=== PATIENT | male | born 1950 | race Caucasian/White ===

== ENCOUNTER → 2018-05-25 | Outpatient (CLI) | payer MEDICARE, MEDICAID ==
[~2018-05-25] MED LIST: GABA800T5 PO; LEVE250T28; LEVE250T5; LEVE500T8 PO
== END | disposition home or self-care (01) ==
LOC: STAR 10:19
PROVIDERS: ATTEND Orthopaedic Surgery
DX: Z01.818 Encounter for other preprocedural examination (principal); M25.561 Pain in right knee
CPT/HCPCS: 93005

== ENCOUNTER 2018-07-13 12:35 | Inpatient (IN) | payer MEDICAID, MEDICARE ==
[~2018-07-13] VITALS: Ht 182.9 cm; Wt 86.0 kg
[2018-07-13] MEDS ORDERED: LACTATED RINGERS 1,000 ML IV SCH (12:54)
[2018-07-13] MEDS ORDERED: SCOPOLAMINE PATCH, 1.5MG PATCH.TD72 TD ONE (13:00)
[2018-07-13] MEDS ORDERED: GABAPENTIN 300 MG CAPSULE PO ONE (13:00)
[2018-07-13] MEDS ORDERED: ACETAMINOPHEN 500 MG TABLET PO ONE (13:00)
[2018-07-13] MEDS ORDERED: PLEASE ENTER HEIGHT AND WEIGHT MC SCH (13:00)
[2018-07-13] MEDS ORDERED: MIDAZOLAM 1 MG/ML, 2ML ONE (13:05)
[2018-07-13] MEDS ORDERED: FENTANYL PF 250 MCG/5ML ONE (13:06)
[2018-07-13] MEDS ORDERED: WATER-INJECTION,STERILE 10 ML IV ONE (13:07)
[2018-07-13] MEDS ORDERED: CEFAZOLIN 1,000 MG ONE ×2 (13:07)
[2018-07-13] MEDS ORDERED: PROPOFOL 10 MG/ML, 20ML ONE (13:08)
[2018-07-13] MEDS ORDERED: LIDOCAINE-MPF 2% ,5ML ONE (13:08)
[2018-07-13] MEDS ORDERED: DEXAMETHASONE 4 MG/ML, 1ML ONE ×2 (13:09)
[2018-07-13] MEDS ORDERED: ONDANSETRON 2MG/ML, 2ML ONE ×2 (13:09)
[2018-07-13 13:32] VITALS: BP 138/85
[2018-07-13] MEDS ORDERED: ROCURONIUM 10MG/ML,5ML ONE (13:38)
[2018-07-13] MEDS ORDERED: MEPERIDINE/PF 50 MG/ML ONE (13:41)
[2018-07-13] MEDS ORDERED: EPINEPHRINE 1 MG/ML, 1ML ONE (13:49)
[2018-07-13] MEDS ORDERED: BUPIVACAINE/PF 0.5% ONE (13:49)
[2018-07-13] MEDS ORDERED: MEPERIDINE/PF 100 MG/ML ONE (14:59)
[2018-07-13] MEDS ORDERED: hydrALAzine 20 MG/ML, 1ML IV PRN (15:00)
[2018-07-13] MEDS ORDERED: HALOPERIDOL 5 MG/ML IV PRN (15:00)
[2018-07-13] MEDS ORDERED: MIDAZOLAM 1 MG/ML, 2ML IV PRN (15:00)
[2018-07-13] MEDS ORDERED: FENTANYL PF 100 MCG/2ML IV PRN (15:00)
[2018-07-13] MEDS ORDERED: MEPERIDINE/PF 25MG/0.5ML IVPush PRN (15:00)
[2018-07-13] MEDS ORDERED: OXYcodone 5 MG/5 ML ORAL.SOL UDC PO PRN (15:00)
[2018-07-13] MEDS ORDERED: PROMETHAZINE 25 MG/ML, 1ML IV PRN (15:00)
[2018-07-13] MEDS ORDERED: HYDROmorphone 2 MG/ML, 1ML IVPush PRN (15:00)
[2018-07-13] MEDS ORDERED: SUGAMMADEX 200 MG/2 ML IVPush ONE (15:19)
[2018-07-13] MEDS ORDERED: OXYcodone 5 MG/5 ML ORAL.SOL UDC ONE (16:16)
[2018-07-13] MEDS ORDERED: ONDANSETRON 2MG/ML, 2ML IV PRN (17:30)
[2018-07-13 18:25] VITALS: BP 148/89
[2018-07-13] MEDS: GABAPENTIN 400 MG CAPSULE PO SCH (21:41)
[2018-07-13] MEDS: KETOROLAC 30 MG/1 ML IV SCH (21:41)
[2018-07-13] MEDS: SODIUM CHLORIDE 0.9% 1,000 ML IV SCH (21:41)
[2018-07-13] MEDS: LEVETIRACETAM 500 MG TABLET PO SCH (21:41)
[2018-07-13] MEDS: OXYcodone/APAP 10/325MG TABLET PO PRN (22:13)
[2018-07-13] MEDS: CEFAZOLIN PMX 1GM/50ML 50 ML IVPB SCH (22:13)
[2018-07-14 00:48] VITALS: BP 133/79
[2018-07-14] MEDS: OXYcodone/APAP 10/325MG TABLET PO PRN ×5 (02:11→20:10)
[2018-07-14 03:33] VITALS: BP 124/75
[2018-07-14] MEDS ORDERED: ENOXAPARIN 30 MG/0.3 ML SQ ONE (06:00)
[2018-07-14] MEDS: KETOROLAC 30 MG/1 ML IV SCH ×2 (06:14→13:40)
[2018-07-14] MEDS: CEFAZOLIN PMX 1GM/50ML 50 ML IVPB SCH ×2 (06:44→14:37)
[2018-07-14 07:43] VITALS: BP 120/70
[2018-07-14] MEDS: GABAPENTIN 400 MG CAPSULE PO SCH ×3 (09:00→20:10)
[2018-07-14] MEDS: LEVETIRACETAM 500 MG TABLET PO SCH ×2 (09:00→20:10)
[2018-07-14 13:32] VITALS: BP 138/79
[2018-07-14] MEDS: SODIUM CHLORIDE 0.9% 1,000 ML IV SCH (13:40)
[2018-07-14 18:45] VITALS: BP 128/81
[2018-07-15 00:17] VITALS: BP 137/83
[2018-07-15] MEDS: OXYcodone/APAP 10/325MG TABLET PO PRN ×5 (02:09→18:08)
[2018-07-15 09:26] VITALS: BP 140/76
[2018-07-15] MEDS: SODIUM CHLORIDE 0.9% 1,000 ML IV SCH (09:30)
[2018-07-15] MEDS: LEVETIRACETAM 500 MG TABLET PO SCH (09:36)
[2018-07-15] MEDS: GABAPENTIN 400 MG CAPSULE PO SCH ×2 (09:36→18:09)
[2018-07-15 15:03] VITALS: BP 163/90
[2018-07-15] MEDS ORDERED: TRAM50TA2 PO (17:24)
[2018-07-15] MEDS ORDERED: ASPI81TA45 PO (17:24)
[2018-07-23] MEDS ORDERED: GABA-826 PO (21:28)
[2018-07-23] MEDS ORDERED: LEVE500T53 PO ×2 (21:30→21:33)
[2018-07-28] MEDS ORDERED: OXYC-302 PO (09:55)
== END 2018-07-15 18:00 | disposition home health service (06) | DRG 489 ==
LOC: OUT 12:35 → 4NOR 16:59 → OUT 17:01 → 4NOR 07-14 18:10
PROVIDERS: ADMIT Orthopaedic Surgery; ATTEND Orthopaedic Surgery
PROC: 0QHJ04Z Insertion of Internal Fixation Device into Right Fibula, Open Approach (ICD-10-PCS; 2018-07-13)
PROC: 0QHG04Z Insertion of Internal Fixation Device into Right Tibia, Open Approach (ICD-10-PCS; 2018-07-13)
PROC: 0SNC0ZZ Release Right Knee Joint, Open Approach (ICD-10-PCS; principal; 2018-07-13 15:00)
DX: M24.561 Contracture, right knee (principal); Z53.21 Procedure and treatment not carried out due to patient leaving prior to being seen by health care provider; G40.909 Epilepsy, unspecified, not intractable, without status epilepticus; Z87.891 Personal history of nicotine dependence; Z86.718 Personal history of other venous thrombosis and embolism; Z89.511 Acquired absence of right leg below knee
CPT/HCPCS: 93005; G0378; J0171; J0690; J1100; J1650; J1885; J2175; J2250; J2405; J2704; J3010; J7030; J7120

== ENCOUNTER 2019-01-30 15:35 | Inpatient (IN) | payer MEDICARE, MEDICAID ==
[~2019-01-30] VITALS: Ht 182.9 cm; Wt 73.1 kg
[~2019-01-30 15:35] MED LIST changes: +ASPI81TA45 PO; +GABA-826 PO; +LEVE500T53 PO; +OXYC-302 PO; +TRAM50TA2 PO
--- NOTE | 2019-01-30 15:39 | NUR ---
BIB [facility]-c/o diarrhea x3 weeks as well as increased weakness. Pt [facility] same. States not getting better. Pt placed in gown, positioned for comfort in bed. Continuous oxygen and BP Monitors applied, all safety measures observed.
--- NOTE | 2019-01-30 15:44 | NUR ---
Dr. Ch at bedside to evaluate pt.
[2019-01-30] MEDS ORDERED: SODIUM CHLORIDE 0.9% 1,000 ML IV ONE (15:49)
[2019-01-30] MEDS ORDERED: SODIUM CHLORIDE FLUSH 10ML SYR IVF ONE (16:00)
[2019-01-30 16:28] LABS: ALANINE AMINOTRANSFERASE 71 U/L (12-78); ALBUMIN 2.4 g/dL (3.4-5.0); ANION GAP 5 mmol/L (5-15); CALCIUM 10.3 mg/dL (8.5-10.1); CHLORIDE 110 mmol/L (98-107); CREATININE 0.51 mg/dL (0.7-1.3)
[2019-01-30 16:30] LABS: ALKALINE PHOSPHATASE 144 U/L (45-117); TOTAL PROTEIN 6.9 g/dL (6.4-8.2)
[2019-01-30 16:52] LABS: MEAN CORPUSCULAR HEMOGLOBIN 28.3 pg (27.5-34.5); MEAN CORPUSCULAR HGB CONC 32.7 g/dL (33.2-36.2); MEAN CORPUSCULAR VOLUME 86.6 fL (81-97); RED BLOOD COUNT 5.93 x10^6/uL (4.38-5.82); RED CELL DISTRIBUTION WIDTH 28.6 % (9.4-14.8)
[2019-01-30 16:53] LABS: MEAN PLATELET VOLUME 10.5 fL (7.4-10.4); PLATELET COUNT 93 x10^3/uL (130-400)
[2019-01-30 16:54] LABS: MD YES
[2019-01-30 16:59] LABS: BAND#(MANUAL) 0.14 x10^3/uL; BANDS%(MANUAL) 4 % (0-7); BASOS#(MANUAL) 0.04 x10^3/uL (0-0.1); BASOS% (MANUAL) 1 % (0-1); EOS#(MANUAL) 0.07 x10^3/uL (0.0-0.4); EOS% (MANUAL) 2 % (1-7); LYMPH#(MANUAL) 0.32 x10^3/uL (1-3.4); LYMPHS% (MANUAL) 9 % (22-44); MONOS#(MANUAL) 0.04 x10^3/uL (0.3-2.7); MONOS% (MANUAL) 1 % (2-9); SEG#(MANUAL) 2.91 x10^3/uL (1.8-6.8); SEGS% (MANUAL) 83 % (42-75)
[2019-01-30 17:01] LABS: ANISOCYTOSIS 2+
[2019-01-30 17:02] LABS: POLYCHROMASIA 1+; TARGET CELLS 1+
[2019-01-30 17:03] LABS: <PLATELET ESTIMATE> DECREASED; LARGE PLATELETS 1+
--- NOTE | 2019-01-30 17:52 | NUR ---
Pt incontinent of stool. Stool appears soft but formed. Patito care provided. Linens changed. Pt provided warm blankets. Pt provided water per request. Pt denies other needs.
[2019-01-30 18:10] LABS: MICROSCOPIC INDICATED
[2019-01-30 18:11] LABS: CULTURE INDICATED? YES
[2019-01-30] MEDS ORDERED: CEFTRIAXONE PMX 1GM/50ML 50 ML IV ONE ×2 (19:00→22:00)
--- NOTE | 2019-01-30 19:03 | NUR ---
Report to Kory [facility].
--- NOTE | 2019-01-30 19:22 | NUR ---
Received report and assumed patient care. Patient resting comfortably. Aware of admit. Awaiting room.
[2019-01-30] MEDS ORDERED: CEFTRIAXONE PMX 1GM/50ML 50 ML ONE (19:28)
--- NOTE | 2019-01-30 19:38 | NUR ---
RN to bedside; patient informed of wait for medical bed. Patient alert, oriented. Antibiotic hung (see mar) fluids still running.
[2019-01-30] MEDS ORDERED: ENALAPRILAT 1.25 MG/ML, 2ML IV ONE (21:30)
[2019-01-30] MEDS ORDERED: DOCUSATE 100 MG CAPSULE PO PRN (22:00)
[2019-01-30] MEDS ORDERED: ONDANSETRON 2MG/ML, 2ML IVPush PRN (22:00)
[2019-01-30] MEDS ORDERED: TEMAZEPAM 15 MG CAPSULE PO PRN (22:00)
[2019-01-30] MEDS ORDERED: LIDODERM 5% PATCH TD PRN (22:00)
[2019-01-30] MEDS ORDERED: ENALAPRILAT 1.25 MG/ML, 2ML IVPush PRN (22:00)
[2019-01-30] MEDS ORDERED: ACETAMINOPHEN 325 MG TABLET PO PRN (22:00)
[2019-01-30 22:07] VITALS: BP 155/92
[2019-01-30] MEDS: LEVETIRACETAM 500 MG TABLET PO SCH (22:45)
[2019-01-30] MEDS: GABAPENTIN 100 MG CAPSULE PO SCH (22:45)
[2019-01-30] MEDS: ENOXAPARIN 40 MG/0.4 ML SQ SCH (22:49)
[2019-01-30 23:21] VITALS: BP 174/100
[2019-01-30 23:52] LABS: CLOSTRIDIUM DIFFICILE ANTIGEN NEGATIVE; CLOSTRIDIUM DIFFICILE TOXIN NEGATIVE (Negative)
[2019-01-31] MEDS: SODIUM CHLORIDE 0.9% 1,000 ML IV SCH ×2 (01:51→17:33)
[2019-01-31 03:26] VITALS: BP 157/78
[2019-01-31 04:57] LABS: ANION GAP 5 mmol/L (5-15); CHLORIDE 109 mmol/L (98-107); CREATININE 0.49 mg/dL (0.7-1.3)
[2019-01-31 05:49] LABS: MD YES; MEAN CORPUSCULAR HEMOGLOBIN 28.4 pg (27.5-34.5); MEAN CORPUSCULAR HGB CONC 32.5 g/dL (33.2-36.2); MEAN CORPUSCULAR VOLUME 87.2 fL (81-97); MEAN PLATELET VOLUME 9.5 fL (7.4-10.4); PLATELET COUNT 80 x10^3/uL (130-400); RED BLOOD COUNT 5.82 x10^6/uL (4.38-5.82); RED CELL DISTRIBUTION WIDTH 28.7 % (9.4-14.8)
[2019-01-31 05:51] LABS: BAND#(MANUAL) 0.12 x10^3/uL; BANDS%(MANUAL) 3 % (0-7); EOS#(MANUAL) 0.08 x10^3/uL (0.0-0.4); EOS% (MANUAL) 2 % (1-7); LYMPH#(MANUAL) 0.62 x10^3/uL (1-3.4); LYMPHS% (MANUAL) 15 % (22-44); MONOS#(MANUAL) 0.16 x10^3/uL (0.3-2.7); MONOS% (MANUAL) 4 % (2-9); SEG#(MANUAL) 3.12 x10^3/uL (1.8-6.8); SEGS% (MANUAL) 76 % (42-75)
[2019-01-31 05:53] LABS: <PLATELET ESTIMATE> DECREASED; ANISOCYTOSIS 2+; LARGE PLATELETS 1+; TARGET CELLS 1+
[2019-01-31 07:31] VITALS: BP 161/97
[2019-01-31] MEDS: GABAPENTIN 300 MG CAPSULE PO SCH ×3 (08:25→21:16)
[2019-01-31] MEDS: LEVETIRACETAM 500 MG TABLET PO SCH ×2 (08:25→21:16)
[2019-01-31] MEDS: GABAPENTIN 100 MG CAPSULE PO SCH ×3 (08:25→21:16)
[2019-01-31] MEDS: LIDODERM REMOVE PATCH NOTE XX SCH (10:30)
[2019-01-31 13:00] VITALS: BP 153/85
[2019-01-31 20:02] VITALS: BP 159/88
[2019-01-31] MEDS: ENOXAPARIN 40 MG/0.4 ML SQ SCH (22:40)
[2019-01-31] MEDS: CEFTRIAXONE PMX 2GM/50ML 50 ML IV SCH (22:40)
[2019-02-01 01:36] VITALS: BP 165/91
[2019-02-01] MEDS: SODIUM CHLORIDE 0.9% 1,000 ML IV SCH (04:54)
[2019-02-01 06:08] LABS: MEAN CORPUSCULAR HEMOGLOBIN 28.5 pg (27.5-34.5); MEAN CORPUSCULAR VOLUME 86.3 fL (81-97); RED BLOOD COUNT 5.38 x10^6/uL (4.38-5.82); RED CELL DISTRIBUTION WIDTH 28.2 % (9.4-14.8)
[2019-02-01 06:13] LABS: ALANINE AMINOTRANSFERASE 65 U/L (12-78); ALBUMIN 2.2 g/dL (3.4-5.0); ANION GAP 5 mmol/L (5-15); CALCIUM 9.2 mg/dL (8.5-10.1); CHLORIDE 108 mmol/L (98-107)
[2019-02-01 06:16] LABS: ALKALINE PHOSPHATASE 123 U/L (45-117); BILIRUBIN,TOTAL 0.8 mg/dL (0.2-1.0); CREATININE 0.54 mg/dL (0.7-1.3); TOTAL PROTEIN 6.3 g/dL (6.4-8.2)
[2019-02-01 06:39] LABS: MD YES
[2019-02-01 06:41] LABS: BAND#(MANUAL) 0.05 x10^3/uL; BANDS%(MANUAL) 1 % (0-7); EOS#(MANUAL) 0.09 x10^3/uL (0.0-0.4); EOS% (MANUAL) 2 % (1-7); LYMPH#(MANUAL) 0.55 x10^3/uL (1-3.4); LYMPHS% (MANUAL) 12 % (22-44); MONOS#(MANUAL) 0.23 x10^3/uL (0.3-2.7); MONOS% (MANUAL) 5 % (2-9); SEG#(MANUAL) 3.68 x10^3/uL (1.8-6.8); SEGS% (MANUAL) 80 % (42-75)
[2019-02-01 06:42] LABS: ANISOCYTOSIS 1+; HYPOCHROMIA 1+; TARGET CELLS 1+
[2019-02-01 06:44] LABS: <PLATELET ESTIMATE> DECREASED; LARGE PLATELETS 1+
[2019-02-01 06:51] LABS: PLATELET COUNT 81 x10^3/uL (130-400)
[2019-02-01 07:36] VITALS: BP 158/93
[2019-02-01] MEDS: GABAPENTIN 100 MG CAPSULE PO SCH (09:09)
[2019-02-01] MEDS: LEVETIRACETAM 500 MG TABLET PO SCH ×2 (09:09→20:00)
[2019-02-01] MEDS: LIDODERM REMOVE PATCH NOTE XX SCH (10:30)
[2019-02-01 12:47] VITALS: BP 159/85
[2019-02-01] MEDS ORDERED: GABAPENTIN 100 MG CAPSULE PO SCH (16:00)
[2019-02-01] MEDS ORDERED: GABAPENTIN 400 MG CAPSULE PO SCH (16:00)
[2019-02-01] MEDS: LOPERAMIDE 2 MG CAPSULE PO SCH ×2 (17:23→21:28)
[2019-02-01 19:37] VITALS: BP 158/79
[2019-02-01] MEDS: GABAPENTIN 400 MG CAPSULE PO SCH (20:00)
[2019-02-01] MEDS: CEFTRIAXONE PMX 2GM/50ML 50 ML IV SCH (21:27)
[2019-02-01] MEDS: ENOXAPARIN 40 MG/0.4 ML SQ SCH ×2 (21:28→21:31)
[2019-02-02 01:45] VITALS: BP 152/76
[2019-02-02] MEDS: LOPERAMIDE 2 MG CAPSULE PO SCH ×4 (03:40→20:30)
[2019-02-02 06:31] LABS: ANION GAP 5 mmol/L (5-15); CALCIUM 9.6 mg/dL (8.5-10.1); CHLORIDE 108 mmol/L (98-107)
[2019-02-02 06:32] LABS: CREATININE 0.41 mg/dL (0.7-1.3)
[2019-02-02 07:10] LABS: BASOPHILS % (AUTO) 0 % (0-1); EOSINOPHILS # (AUTO) 0.09 x10^3/uL (0-0.4); EOSINOPHILS % (AUTO) 2 % (1-7); LYMPHOCYTES # (AUTO) 0.83 x10^3/uL (1-3.4); LYMPHOCYTES % (AUTO) 19 % (22-44); MD SCAN; MEAN CORPUSCULAR HEMOGLOBIN 28.4 pg (27.5-34.5); MEAN CORPUSCULAR HGB CONC 33.1 g/dL (33.2-36.2); MEAN CORPUSCULAR VOLUME 85.8 fL (81-97); MEAN PLATELET VOLUME 10.9 fL (7.4-10.4); MONOCYTES # (AUTO) 0.23 x10^3/uL (0.2-0.8); MONOCYTES % (AUTO) 5 % (2-9); NEUTROPHILS # (AUTO) 3.25 x10^3/uL (1.8-6.8); NEUTROPHILS % (AUTO) 74 % (42-75); PLATELET COUNT 83 x10^3/uL (130-400); RED BLOOD COUNT 5.61 x10^6/uL (4.38-5.82)
[2019-02-02 07:47] VITALS: BP 149/79
[2019-02-02] MEDS: GABAPENTIN 400 MG CAPSULE PO SCH ×3 (08:51→20:30)
[2019-02-02] MEDS: LEVETIRACETAM 500 MG TABLET PO SCH ×2 (08:52→20:30)
[2019-02-02] MEDS: LIDODERM REMOVE PATCH NOTE XX SCH (10:30)
[2019-02-02 13:11] VITALS: BP 177/100
[2019-02-02 13:30] VITALS: BP 162/84
[2019-02-02 19:07] VITALS: BP 160/90
[2019-02-02] MEDS: ENOXAPARIN 40 MG/0.4 ML SQ SCH (22:00)
[2019-02-02] MEDS: CEFTRIAXONE PMX 2GM/50ML 50 ML IV SCH (22:30)
[2019-02-03 01:17] VITALS: BP 155/69
[2019-02-03] MEDS: LOPERAMIDE 2 MG CAPSULE PO SCH ×4 (03:45→23:46)
[2019-02-03 06:49] VITALS: BP 144/93
[2019-02-03] MEDS: GABAPENTIN 400 MG CAPSULE PO SCH ×3 (10:09→23:46)
[2019-02-03] MEDS: LEVETIRACETAM 500 MG TABLET PO SCH ×2 (10:09→20:46)
[2019-02-03] MEDS: LIDODERM REMOVE PATCH NOTE XX SCH (10:30)
[2019-02-03 12:42] VITALS: BP 160/92
[2019-02-03 19:17] VITALS: BP 150/76
[2019-02-03] MEDS: ENOXAPARIN 40 MG/0.4 ML SQ SCH (22:00)
[2019-02-03] MEDS: CEFTRIAXONE PMX 2GM/50ML 50 ML IV SCH (22:04)
[2019-02-04 01:43] VITALS: BP 163/91
[2019-02-04] MEDS: LOPERAMIDE 2 MG CAPSULE PO SCH ×2 (05:55→10:16)
[2019-02-04 06:54] VITALS: BP 143/67
[2019-02-04 07:36] VITALS: BP 124/64
[2019-02-04] MEDS: LEVETIRACETAM 500 MG TABLET PO SCH (10:16)
[2019-02-04] MEDS: GABAPENTIN 400 MG CAPSULE PO SCH (10:16)
[2019-02-04] MEDS: LIDODERM REMOVE PATCH NOTE XX SCH (10:16)
[2019-02-04] MEDS ORDERED: CEFD300C37 PO (10:50)
[2019-02-04] MEDS ORDERED: LOPE2CAP PO (10:50)
[2019-02-04 12:20] VITALS: BP 154/79
== END 2019-02-04 13:28 | disposition home health service (06) | DRG 690 ==
LOC: ED 18:43 → EDIP 19:04 → 3N 20:55
PROVIDERS: ADMIT Family Medicine; ATTEND Internal Medicine
PROC: 0T9B70Z Drainage of Bladder with Drainage Device, Via Natural or Artificial Opening (ICD-10-PCS; principal; 2019-01-30)
DX: N39.0 Urinary tract infection, site not specified (principal); K52.9 Noninfective gastroenteritis and colitis, unspecified; G40.909 Epilepsy, unspecified, not intractable, without status epilepticus; F12.90 Cannabis use, unspecified, uncomplicated; F17.210 Nicotine dependence, cigarettes, uncomplicated; I10 Essential (primary) hypertension; Z60.2 Problems related to living alone; D69.6 Thrombocytopenia, unspecified; Z99.3 Dependence on wheelchair; B96.20 Unspecified Escherichia coli [E. coli] as the cause of diseases classified elsewhere; Z89.511 Acquired absence of right leg below knee; Z72.89 Other problems related to lifestyle; Z86.718 Personal history of other venous thrombosis and embolism; Z79.899 Other long term (current) drug therapy
CPT/HCPCS: 36415; 71045; 80048; 80053; 81001; 83690; 85025; 87077; 87086; 87186; 87324; 89055; 93005; G0378; J0696; J1650; J7030

== ENCOUNTER 2019-02-11 11:09 | Emergency (ER) | payer MEDICARE, MEDICAID ==
[~2019-02-11] VITALS: Ht 177.8 cm; Wt 68.4 kg
[~2019-02-11 11:09] MED LIST changes: +CEFD300C37 PO; +LOPE2CAP PO
--- NOTE | 2019-02-11 11:15 | NUR ---
PT MARTHA CHAKRABORTY FROM HOME AFTER PHYSICAL THERPIST CALLED [facility] FOR INABILITY FOR PT TO CARE FOR SELF. PT HAS NEW "BED SORE" TO RIGHT HIP. PT REPORTS HE WATCHES TV ON HIS RIGHT HIP. PT ON OMNICEF FOR UTI AND HAS HAD DIARRHEA PER PT FOR 2 MONTHS.
[2019-02-11] MEDS ORDERED: GABA400C PO (11:39)
[2019-02-11] MEDS ORDERED: ATOR40TA78 PO (11:39)
[2019-02-11] MEDS ORDERED: TIOT18CA INH (11:39)
--- NOTE | 2019-02-11 12:00 | NUR ---
PT REPORTED TO DR. PATRICIO THAT HE DID NOT WANT TO GO TO ANY SNF.
[2019-02-11 12:02] LABS: MEAN CORPUSCULAR HGB CONC 32.8 g/dL (33.2-36.2); MEAN CORPUSCULAR VOLUME 88.3 fL (81-97); MEAN PLATELET VOLUME 10.2 fL (7.4-10.4); PLATELET COUNT 100 x10^3/uL (130-400); RED BLOOD COUNT 5.55 x10^6/uL (4.38-5.82)
[2019-02-11 12:06] LABS: ALANINE AMINOTRANSFERASE 83 U/L (12-78); ALBUMIN 2.1 g/dL (3.4-5.0); ANION GAP 5 mmol/L (5-15); CALCIUM 9.9 mg/dL (8.5-10.1); CHLORIDE 109 mmol/L (98-107); CREATININE 0.53 mg/dL (0.7-1.3)
[2019-02-11 12:09] LABS: ALKALINE PHOSPHATASE 123 U/L (45-117); BILIRUBIN,TOTAL 1.1 mg/dL (0.2-1.0); TOTAL PROTEIN 6.5 g/dL (6.4-8.2)
[2019-02-11 12:28] LABS: MD YES
[2019-02-11 12:49] LABS: ANISOCYTOSIS 1+; BAND#(MANUAL) 0.29 x10^3/uL; BANDS%(MANUAL) 7 % (0-7); EOS#(MANUAL) 0.12 x10^3/uL (0.0-0.4); EOS% (MANUAL) 3 % (1-7); HYPOCHROMIA 1+; LYMPHS% (MANUAL) 17 % (22-44); MONOS#(MANUAL) 0.21 x10^3/uL (0.3-2.7); MONOS% (MANUAL) 5 % (2-9); SEG#(MANUAL) 2.79 x10^3/uL (1.8-6.8); SEGS% (MANUAL) 68 % (42-75); TARGET CELLS 1+
[2019-02-11 12:50] LABS: <PLATELET ESTIMATE> DECREASED; LARGE PLATELETS 1+; POLYCHROMASIA 1+
--- NOTE | 2019-02-11 12:55 | NUR ---
PT GIVEN MEAL TRAY AND ADJUSTED IN BED.
--- NOTE | 2019-02-11 13:29 | NUR ---
PT DESATED TO 86% RA AFTER EATING. DR. PATRICIO AWARE. PT SATING 92% ON 2 LITERS NOW.
--- NOTE | 2019-02-11 14:41 | NUR ---
DR. PATRICIO AT BEDSIDE FOR RECHECK. PT ELECTING TO GO HOME AND HAVE HOME HEALTH NURSE HE HAS SET UP.
[2019-02-11 14:47] VITALS: BP 132/80
== END 2019-02-11 15:24 | disposition home or self-care (01) ==
LOC: ED 14:15
DX: R19.7 Diarrhea, unspecified (principal); L89.212 Pressure ulcer of right hip, stage 2; L89.892 Pressure ulcer of other site, stage 2; M79.89 Other specified soft tissue disorders; R62.7 Adult failure to thrive; Z68.21 Body mass index [BMI] 21.0-21.9, adult
CPT/HCPCS: 36415; 71045; 80053; 85025; 99284

== ENCOUNTER 2019-02-18 15:20 | Inpatient (IN) | payer MEDICARE, MEDICAID ==
[~2019-02-18] VITALS: Ht 180.3 cm; Wt 73.0 kg
[~2019-02-18 15:20] MED LIST changes: +ATOR40TA78 PO; +GABA400C PO; +TIOT18CA INH
[2019-02-18] MEDS ORDERED: SODIUM CHLORIDE 0.9% 1,000 ML IV ONE (15:52)
[2019-02-18] MEDS ORDERED: SODIUM CHLORIDE FLUSH 10ML SYR IVF ONE (16:00)
--- NOTE | 2019-02-18 16:55 | NUR ---
BED BATH DONE, PT PROVIDED MULTIPLE CUPS OF WATER, DIET TRAY ORDERED. MULTIPLE PRESSURE ULCERS NOTED. LEFT HIP WITH PETECHIA AND BLACK SCAB 6/6 CM. RIGHT HIP WITH PARTIALLY HEALED PRESSURE ULCER WITH BROKEN SCABBING AND BLANCHABLE REDNESS. SCROTUM IS RED WITH PEALING SKIN, BOTTOM IS ALSO REDDENED WITH PEALING SKIN FROM LONG CONTACT WITH SOILED DIAPER.
[2019-02-18 17:09] LABS: ALANINE AMINOTRANSFERASE 96 U/L (12-78); ALBUMIN 2.6 g/dL (3.4-5.0); ANION GAP 7 mmol/L (5-15); CALCIUM 10.9 mg/dL (8.5-10.1); CHLORIDE 105 mmol/L (98-107); CREATININE 0.61 mg/dL (0.7-1.3)
[2019-02-18 17:20] LABS: INTERNATIONAL NORMALIZED RATIO 1.17 (0.93-1.1); PROTHROMBIN TIME 12.2 Seconds (9.6-11.5)
[2019-02-18 17:30] LABS: MEAN CORPUSCULAR HGB CONC 32.4 g/dL (33.2-36.2); MEAN CORPUSCULAR VOLUME 89.4 fL (81-97); RED BLOOD COUNT 6.31 x10^6/uL (4.38-5.82); RED CELL DISTRIBUTION WIDTH 26.7 % (9.4-14.8)
[2019-02-18 17:31] LABS: MEAN PLATELET VOLUME 12.5 fL (7.4-10.4); PLATELET COUNT 112 x10^3/uL (130-400)
[2019-02-18 17:35] LABS: ALKALINE PHOSPHATASE 141 U/L (45-117); BILIRUBIN,TOTAL 1.6 mg/dL (0.2-1.0); TOTAL PROTEIN 7.9 g/dL (6.4-8.2)
--- NOTE | 2019-02-18 17:38 | NUR ---
PROVIDED DINNER MEAL TRAY AND SET PATIENT UP TO EAT.
[2019-02-18 17:39] LABS: MD YES
[2019-02-18 17:50] LABS: BAND#(MANUAL) 0.09 x10^3/uL; BANDS%(MANUAL) 2 % (0-7); LYMPH#(MANUAL) 0.45 x10^3/uL (1-3.4); LYMPHS% (MANUAL) 10 % (22-44); MONOS#(MANUAL) 0.27 x10^3/uL (0.3-2.7); MONOS% (MANUAL) 6 % (2-9); SEG#(MANUAL) 3.69 x10^3/uL (1.8-6.8); SEGS% (MANUAL) 82 % (42-75)
[2019-02-18 17:54] LABS: POLYCHROMASIA 1+
[2019-02-18 17:58] LABS: TARGET CELLS 1+
[2019-02-18 18:01] LABS: SPHEROCYTES 1+
[2019-02-18 18:02] LABS: <PLATELET ESTIMATE> DECREASED; ANISOCYTOSIS 1+; LARGE PLATELETS 1+
--- NOTE | 2019-02-18 18:37 | NUR ---
PT CLEANED UP AND LINEN CHANGED AFTER BM IN BED. STOOL IS BROWN AND LIQUIDY. PUT PATIENT ON SPECIAL ISO PRECAUTIONS FOR POSSIBLE CDIFF.
--- NOTE | 2019-02-18 19:20 | NUR ---
pt with another bout of diarrhea, cleaned patient up and sent specimen to the lab. pt being transferred to inpatient room [id number].
[2019-02-18 19:42] VITALS: BP 148/93
[2019-02-18] MEDS ORDERED: ONDANSETRON 2MG/ML, 2ML IVPush PRN (20:00)
[2019-02-18] MEDS ORDERED: LACTATED RINGERS 1,000 ML IV SCH (20:00)
[2019-02-18] MEDS ORDERED: hydrALAzine 20 MG/ML, 1ML IVPush PRN (20:00)
[2019-02-18] MEDS: ENOXAPARIN 40 MG/0.4 ML SQ SCH (20:52)
[2019-02-18] MEDS: ACETAMINOPHEN 325 MG TABLET PO PRN (20:52)
[2019-02-18 21:10] LABS: CLOSTRIDIUM DIFFICILE ANTIGEN NEGATIVE; CLOSTRIDIUM DIFFICILE TOXIN NEGATIVE (Negative)
[2019-02-18 21:37] LABS: FREE T4 (FREE THYROXINE) 1.11 ng/dL (0.76-1.46)
[2019-02-18] MEDS: LEVETIRACETAM 500 MG TABLET PO SCH (23:00)
[2019-02-18] MEDS: GABAPENTIN 400 MG CAPSULE PO SCH (23:00)
[2019-02-18 23:30] VITALS: BP 148/93
[2019-02-18 23:47] LABS: MICROSCOPIC INDICATED
[2019-02-18 23:59] LABS: CULTURE INDICATED? YES
[2019-02-19 00:07] LABS: OCCULT BLOOD NEGATIVE (NEGATIVE)
[2019-02-19 00:30] VITALS: BP 137/83
[2019-02-19] MEDS: CEFTRIAXONE PMX 1GM/50ML 50 ML IV SCH (02:51)
[2019-02-19 03:38] LABS: ANION GAP 9 mmol/L (5-15); CALCIUM 9.7 mg/dL (8.5-10.1); CHLORIDE 107 mmol/L (98-107)
[2019-02-19 03:41] LABS: ALANINE AMINOTRANSFERASE 75 U/L (12-78); ALKALINE PHOSPHATASE 113 U/L (45-117); BILIRUBIN,TOTAL 1.2 mg/dL (0.2-1.0); CREATININE 0.48 mg/dL (0.7-1.3); TOTAL PROTEIN 6.2 g/dL (6.4-8.2)
[2019-02-19 03:57] LABS: MEAN CORPUSCULAR HEMOGLOBIN 28.6 pg (27.5-34.5); MEAN CORPUSCULAR HGB CONC 32.7 g/dL (33.2-36.2); MEAN CORPUSCULAR VOLUME 87.4 fL (81-97); MEAN PLATELET VOLUME 13.1 fL (7.4-10.4); PLATELET COUNT 121 x10^3/uL (130-400); RED BLOOD COUNT 5.43 x10^6/uL (4.38-5.82); RED CELL DISTRIBUTION WIDTH 24.8 % (9.4-14.8)
[2019-02-19 03:58] LABS: MD YES
[2019-02-19 03:59] LABS: LYMPH#(MANUAL) 0.39 x10^3/uL (1-3.4); LYMPHS% (MANUAL) 9 % (22-44); MONOS#(MANUAL) 0.22 x10^3/uL (0.3-2.7); MONOS% (MANUAL) 5 % (2-9); SEGS% (MANUAL) 86 % (42-75)
[2019-02-19 04:00] LABS: ANISOCYTOSIS 1+; HYPOCHROMIA 1+; TARGET CELLS 1+
[2019-02-19 04:02] LABS: <PLATELET ESTIMATE> DECREASED
[2019-02-19 04:03] LABS: LARGE PLATELETS 1+
[2019-02-19 06:09] VITALS: BP 130/77
[2019-02-19] MEDS ORDERED: MAGNESIUM SULFATE PMX 2GM/50ML 50 ML IV ONE (08:00)
[2019-02-19] MEDS ORDERED: D5%-0.45NACL+KCL 20MEQ 1,000 ML IV SCH (08:00)
[2019-02-19] MEDS: GABAPENTIN 400 MG CAPSULE PO SCH ×3 (09:36→20:45)
[2019-02-19] MEDS: LEVETIRACETAM 500 MG TABLET PO SCH ×2 (09:36→20:45)
[2019-02-19 10:49] LABS: HCT (SEDRATE) 48.1 % (39.2-51.8)
[2019-02-19 12:54] VITALS: BP 154/85
[2019-02-19] MEDS ORDERED: OMNIPAQUE 350 MG/ML, 150 ML BOTTLE ONE (14:19)
[2019-02-19] MEDS ORDERED: LOPERAMIDE 2 MG CAPSULE PO PRN (16:00)
[2019-02-19] MEDS ORDERED: VANCOMYCIN PER PHARMACY MC PRN (16:00)
[2019-02-19] MEDS ORDERED: LOPERAMIDE 2 MG CAPSULE PO ONE (16:00)
[2019-02-19] MEDS ORDERED: PHARMACOKINETIC MONITORING MC PRN (16:30)
[2019-02-19] MEDS ORDERED: GLUCAGON 1 MG IM PRN (16:30)
[2019-02-19] MEDS ORDERED: DEXTROSE 50%, 50ML SYRINGE IVPush PRN (16:30)
[2019-02-19] MEDS ORDERED: DEXTROSE 4 GM TAB.CHEW PO PRN (16:30)
[2019-02-19] MEDS ORDERED: PHARMACOKINETIC CONSULTATION MC ONE (16:30)
[2019-02-19] MEDS ORDERED: GADOXETATE DISODIUM 2.5 MMOL/10 ML ONE (17:32)
[2019-02-19] MEDS: VANCOMYCIN 1,600 MG in SODIUM CHLORIDE 0.9% 250 ML IV SCH (17:55)
[2019-02-19] MEDS: D5%-0.45NACL+KCL 20MEQ 1,000 ML IV SCH (17:55)
[2019-02-19 19:50] VITALS: BP 149/77
[2019-02-19] MEDS: CHOLESTYRAMINE LIGHT 4GM PACKET PO SCH (20:44)
[2019-02-19] MEDS: ENOXAPARIN 40 MG/0.4 ML SQ SCH (20:45)
[2019-02-19] MEDS: SODIUM CHLORIDE FLUSH 10ML SYR IVF SCH (20:46)
[2019-02-20] MEDS: CEFTRIAXONE PMX 1GM/50ML 50 ML IV SCH (01:24)
[2019-02-20 02:00] VITALS: BP 151/85
[2019-02-20 05:01] LABS: MEAN CORPUSCULAR HEMOGLOBIN 28.9 pg (27.5-34.5); MEAN CORPUSCULAR HGB CONC 32.3 g/dL (33.2-36.2); MEAN CORPUSCULAR VOLUME 89.7 fL (81-97); PLATELET COUNT 125 x10^3/uL (130-400); RED BLOOD COUNT 5.26 x10^6/uL (4.38-5.82); RED CELL DISTRIBUTION WIDTH 25.3 % (9.4-14.8)
[2019-02-20 05:10] LABS: ANION GAP 8 mmol/L (5-15); CALCIUM 9.3 mg/dL (8.5-10.1); CHLORIDE 107 mmol/L (98-107)
[2019-02-20 05:15] LABS: ALANINE AMINOTRANSFERASE 84 U/L (12-78); ALKALINE PHOSPHATASE 110 U/L (45-117); BILIRUBIN,TOTAL 0.8 mg/dL (0.2-1.0); CREATININE 0.46 mg/dL (0.7-1.3); TOTAL PROTEIN 6.1 g/dL (6.4-8.2)
[2019-02-20 05:48] LABS: MD YES
[2019-02-20 05:51] LABS: ANISOCYTOSIS 1+; EOS#(MANUAL) 0.05 x10^3/uL (0.0-0.4); EOS% (MANUAL) 1 % (1-7); LYMPH#(MANUAL) 0.64 x10^3/uL (1-3.4); LYMPHS% (MANUAL) 14 % (22-44); MONOS#(MANUAL) 0.28 x10^3/uL (0.3-2.7); MONOS% (MANUAL) 6 % (2-9); SEG#(MANUAL) 3.63 x10^3/uL (1.8-6.8); SEGS% (MANUAL) 79 % (42-75)
[2019-02-20 05:54] LABS: <PLATELET ESTIMATE> DECREASED; LARGE PLATELETS 1+; TARGET CELLS 1+
[2019-02-20] MEDS: ASPIRIN 81 MG TABLET EC PO SCH (06:08)
[2019-02-20 07:02] VITALS: BP 145/86
[2019-02-20] MEDS: CHOLESTYRAMINE LIGHT 4GM PACKET PO SCH ×2 (08:07→20:54)
[2019-02-20] MEDS: D5%-0.45NACL+KCL 20MEQ 1,000 ML IV SCH (08:07)
[2019-02-20] MEDS: GABAPENTIN 400 MG CAPSULE PO SCH ×3 (09:14→20:54)
[2019-02-20] MEDS: SODIUM CHLORIDE FLUSH 10ML SYR IVF SCH ×2 (09:14→20:54)
[2019-02-20] MEDS: LEVETIRACETAM 500 MG TABLET PO SCH ×2 (09:14→20:54)
[2019-02-20] MEDS: VANCOMYCIN 1,600 MG in SODIUM CHLORIDE 0.9% 250 ML IV SCH (11:10)
[2019-02-20 13:12] VITALS: BP 139/89
[2019-02-20 19:24] VITALS: BP 146/90
[2019-02-20] MEDS: ENOXAPARIN 40 MG/0.4 ML SQ SCH (20:00)
[2019-02-21 00:38] VITALS: BP 138/72
[2019-02-21] MEDS: CEFTRIAXONE PMX 1GM/50ML 50 ML IV SCH (02:27)
[2019-02-21] MEDS: VANCOMYCIN 1,600 MG in SODIUM CHLORIDE 0.9% 250 ML IV SCH (05:12)
[2019-02-21] MEDS: ASPIRIN 81 MG TABLET EC PO SCH ×2 (05:14→05:37)
[2019-02-21 07:48] VITALS: BP 157/102
[2019-02-21 07:51] VITALS: BP 117/69
[2019-02-21] MEDS: CHOLESTYRAMINE LIGHT 4GM PACKET PO SCH ×2 (08:01→20:44)
[2019-02-21] MEDS: D5%-0.45NACL+KCL 20MEQ 1,000 ML IV SCH (08:01)
[2019-02-21] MEDS: LEVETIRACETAM 500 MG TABLET PO SCH ×2 (08:03→20:42)
[2019-02-21] MEDS: SODIUM CHLORIDE FLUSH 10ML SYR IVF SCH ×2 (08:03→20:43)
[2019-02-21] MEDS: GABAPENTIN 400 MG CAPSULE PO SCH ×3 (08:03→20:42)
[2019-02-21] MEDS: ACETAMINOPHEN 325 MG TABLET PO PRN (08:05)
[2019-02-21 09:44] LABS: ANION GAP 8 mmol/L (5-15); CALCIUM 9.1 mg/dL (8.5-10.1); CHLORIDE 107 mmol/L (98-107)
[2019-02-21 09:47] LABS: ALANINE AMINOTRANSFERASE 81 U/L (12-78); ALKALINE PHOSPHATASE 109 U/L (45-117); BILIRUBIN,TOTAL 0.8 mg/dL (0.2-1.0); CREATININE 0.47 mg/dL (0.7-1.3)
[2019-02-21] MEDS ORDERED: LIDOCAINE 1%, 10ML ONE (11:16)
[2019-02-21 13:35] VITALS: BP 137/87
[2019-02-21] MEDS: OXYcodone IR 5MG TABLET PO PRN ×2 (16:39→20:43)
[2019-02-21 19:26] VITALS: BP 145/89
[2019-02-21] MEDS: ENOXAPARIN 40 MG/0.4 ML SQ SCH (20:00)
[2019-02-22 01:02] VITALS: BP 145/94
[2019-02-22] MEDS: CEFTRIAXONE PMX 1GM/50ML 50 ML IV SCH (01:32)
[2019-02-22] MEDS: ASPIRIN 81 MG TABLET EC PO SCH (03:42)
[2019-02-22 04:46] LABS: CHLORIDE 110 mmol/L (98-107)
[2019-02-22 04:55] LABS: ALANINE AMINOTRANSFERASE 78 U/L (12-78); ALKALINE PHOSPHATASE 105 U/L (45-117); ANION GAP 6 mmol/L (5-15); BILIRUBIN,TOTAL 0.7 mg/dL (0.2-1.0); CREATININE 0.43 mg/dL (0.7-1.3); TOTAL PROTEIN 6.4 g/dL (6.4-8.2)
[2019-02-22 05:46] LABS: MD YES; MEAN CORPUSCULAR HEMOGLOBIN 29.3 pg (27.5-34.5); MEAN CORPUSCULAR VOLUME 88.6 fL (81-97); MEAN PLATELET VOLUME 10.7 fL (7.4-10.4); PLATELET COUNT 92 x10^3/uL (130-400); RED CELL DISTRIBUTION WIDTH 24.5 % (9.4-14.8)
[2019-02-22 05:49] LABS: ANISOCYTOSIS 1+; BAND#(MANUAL) 0.11 x10^3/uL; BANDS%(MANUAL) 3 % (0-7); EOS#(MANUAL) 0.04 x10^3/uL (0.0-0.4); EOS% (MANUAL) 1 % (1-7); HYPOCHROMIA 1+; LYMPH#(MANUAL) 0.42 x10^3/uL (1-3.4); LYMPHS% (MANUAL) 12 % (22-44); MONOS#(MANUAL) 0.25 x10^3/uL (0.3-2.7); MONOS% (MANUAL) 7 % (2-9); SEGS% (MANUAL) 77 % (42-75)
[2019-02-22 05:50] LABS: <PLATELET ESTIMATE> DECREASED; LARGE PLATELETS 1+; POLYCHROMASIA 1+; TARGET CELLS 1+
[2019-02-22 08:28] VITALS: BP 133/82
[2019-02-22] MEDS ORDERED: LIDOCAINE 1%, 10ML ONE (10:46)
[2019-02-22] MEDS: SODIUM CHLORIDE FLUSH 10ML SYR IVF SCH ×2 (11:39→20:24)
[2019-02-22] MEDS: LEVETIRACETAM 500 MG TABLET PO SCH ×2 (11:39→20:24)
[2019-02-22] MEDS: CHOLESTYRAMINE LIGHT 4GM PACKET PO SCH ×2 (11:40→21:00)
[2019-02-22] MEDS: OXYcodone IR 5MG TABLET PO PRN ×3 (11:40→20:31)
[2019-02-22] MEDS: GABAPENTIN 400 MG CAPSULE PO SCH ×3 (11:40→20:24)
[2019-02-22 13:45] VITALS: BP 130/82
[2019-02-22 19:07] VITALS: BP 147/88
[2019-02-22] MEDS: ENOXAPARIN 40 MG/0.4 ML SQ SCH (20:00)
[2019-02-23 01:14] VITALS: BP 130/79
[2019-02-23] MEDS: CEFTRIAXONE PMX 1GM/50ML 50 ML IV SCH (01:41)
[2019-02-23] MEDS: OXYcodone IR 5MG TABLET PO PRN ×4 (04:11→23:41)
[2019-02-23] MEDS: ASPIRIN 81 MG TABLET EC PO SCH (05:50)
[2019-02-23 06:59] VITALS: BP 132/83
[2019-02-23] MEDS ORDERED: MORPHINE SULFATE 4 MG/ML, 1ML IVPush PRN ×3 (08:30→12:30)
[2019-02-23] MEDS: SODIUM CHLORIDE FLUSH 10ML SYR IVF SCH ×2 (08:41→20:11)
[2019-02-23] MEDS: GABAPENTIN 400 MG CAPSULE PO SCH ×3 (08:41→20:10)
[2019-02-23] MEDS: LEVETIRACETAM 500 MG TABLET PO SCH ×2 (08:41→20:10)
[2019-02-23] MEDS: CHOLESTYRAMINE LIGHT 4GM PACKET PO SCH ×2 (10:57→21:00)
[2019-02-23 13:15] VITALS: BP 122/81
[2019-02-23 19:13] VITALS: BP 130/80
[2019-02-23] MEDS: ENOXAPARIN 40 MG/0.4 ML SQ SCH (20:00)
[2019-02-24 01:06] VITALS: BP 125/83
[2019-02-24] MEDS: CEFTRIAXONE PMX 1GM/50ML 50 ML IV SCH (01:44)
[2019-02-24] MEDS: OXYcodone IR 5MG TABLET PO PRN ×4 (03:47→19:57)
[2019-02-24] MEDS: ASPIRIN 81 MG TABLET EC PO SCH (05:56)
[2019-02-24 07:42] VITALS: BP 142/90
[2019-02-24] MEDS: CHOLESTYRAMINE LIGHT 4GM PACKET PO SCH ×2 (08:55→19:58)
[2019-02-24] MEDS: GABAPENTIN 400 MG CAPSULE PO SCH ×3 (08:55→19:57)
[2019-02-24] MEDS: LEVETIRACETAM 500 MG TABLET PO SCH ×2 (08:55→19:57)
[2019-02-24] MEDS: SODIUM CHLORIDE FLUSH 10ML SYR IVF SCH ×2 (08:56→19:57)
[2019-02-24 12:24] VITALS: BP 122/80
[2019-02-24 18:38] VITALS: BP 126/82
[2019-02-24] MEDS: ENOXAPARIN 40 MG/0.4 ML SQ SCH (19:57)
[2019-02-25 00:55] VITALS: BP 124/74
[2019-02-25] MEDS: OXYcodone IR 5MG TABLET PO PRN ×3 (01:29→09:48)
[2019-02-25] MEDS ORDERED: CEFTRIAXONE PMX 1GM/50ML 50 ML IV SCH (01:30)
[2019-02-25] MEDS: ASPIRIN 81 MG TABLET EC PO SCH (05:07)
[2019-02-25 07:16] VITALS: BP 121/81
[2019-02-25] MEDS: GABAPENTIN 400 MG CAPSULE PO SCH (09:47)
[2019-02-25] MEDS: LEVETIRACETAM 500 MG TABLET PO SCH (09:47)
[2019-02-25] MEDS: SODIUM CHLORIDE FLUSH 10ML SYR IVF SCH (09:47)
[2019-02-25] MEDS: CHOLESTYRAMINE LIGHT 4GM PACKET PO SCH (09:48)
== END 2019-02-25 12:38 | DRG 435 ==
LOC: ED 16:08 → EDIP 18:05 → 3N 19:25
PROVIDERS: ADMIT Family Medicine; ATTEND Family Medicine
DX: C22.0 Liver cell carcinoma (principal); E43 Unspecified severe protein-calorie malnutrition; L03.116 Cellulitis of left lower limb; N39.0 Urinary tract infection, site not specified; R18.8 Other ascites; L03.115 Cellulitis of right lower limb; K52.9 Noninfective gastroenteritis and colitis, unspecified; Z66 Do not resuscitate; B18.2 Chronic viral hepatitis C; D69.6 Thrombocytopenia, unspecified; E16.2 Hypoglycemia, unspecified; E27.8 Other specified disorders of adrenal gland; E83.42 Hypomagnesemia; F17.200 Nicotine dependence, unspecified, uncomplicated; G40.909 Epilepsy, unspecified, not intractable, without status epilepticus; I10 Essential (primary) hypertension; I73.9 Peripheral vascular disease, unspecified; K80.20 Calculus of gallbladder without cholecystitis without obstruction; L89.159 Pressure ulcer of sacral region, unspecified stage; R62.7 Adult failure to thrive; Z51.5 Encounter for palliative care; Z63.8 Other specified problems related to primary support group; Z86.718 Personal history of other venous thrombosis and embolism; Z89.611 Acquired absence of right leg above knee; Z91.19 Patient's noncompliance with other medical treatment and regimen; Z99.3 Dependence on wheelchair; Z68.22 Body mass index [BMI] 22.0-22.9, adult
CPT/HCPCS: 36415; 74177; 74182; 74183; 76700; 80053; 80074; 81001; 82105; 82140; 82272; 82330; 82607; 83690; 83735; 84100; 84145; 84439; 84443; 85025; 85610; 85651; 86140; 87040; 87046; 87086; 87324; 87427; 87521; 87522; 87902; 89055; 93005; G0378; J0696; J1650; J3370; Q9967; A9581; J3475; J3480; J7030; J7050; J7120